=== PATIENT | male | born 1950 | race Caucasian/White ===

== ENCOUNTER → 2018-01-04 | Outpatient (CLI) | payer MEDICARE ==
--- NOTE | 2018-01-04 12:26 | Diagnostic Imaging Report ---
EXAMINATION: PA and lateral chest. INDICATION: COPD. COMPARISON: There are no prior studies available for comparison. FINDINGS: The heart size is within normal limits. The lungs are hyperexpanded. This does suggest COPD. There are coarse perihilar markings on the right. These findings may well be chronic in nature. However, there is a vague area of increased density in the right infrahilar region. This finding could be secondary to superimposition of the perihilar markings. The possibility that there is a mass lesion in this area cannot be entirely excluded. A small focus of pneumonia/atelectasis could also present in this manner. Unless there are previous chest exams available to demonstrate that this finding is stable, then CT of the chest would be recommended for further study. The left hilum is prominent. This is probably due to pulmonary vessels alone. This finding could also be further evaluated by either comparison to previous exams or a followup CT chest exam. There is no sign of failure, pneumonia or pleural effusion otherwise. The mediastinum is not widened. The osseous structures show no evidence for an acute abnormality. There are healed displaced rib fractures bilaterally. IMPRESSION: 1. The vague area of increased density in the right infrahilar region is of uncertain etiology. Considerations and recommendations as above. 2. There is chronic pulmonary disease but there is no sign of an acute cardiopulmonary abnormality otherwise. Dictated by: Dictated on workstation # [id number]
== END ==
LOC: RAD 11:28
PROVIDERS: ATTEND Nurse Practitioner Family
DX: J44.9 Chronic obstructive pulmonary disease, unspecified (principal); J30.9 Allergic rhinitis, unspecified; Z72.0 Tobacco use
CPT/HCPCS: 71046

== ENCOUNTER → 2018-01-26 | Outpatient (CLI) | payer MEDICARE ==
[~2018-01-26] MED LIST: RT-ALBUTEROL SULF 2.5 MG/3 ML PRE-MIX VIAL INH ONE
== END ==
LOC: RT 08:16
PROVIDERS: ATTEND Nurse Practitioner Family
DX: J44.9 Chronic obstructive pulmonary disease, unspecified (principal); J30.9 Allergic rhinitis, unspecified; R06.00 Dyspnea, unspecified; Z72.0 Tobacco use
CPT/HCPCS: 94060; 94726; 94729

== ENCOUNTER → 2022-02-13 | Outpatient (CLI) | payer OTHER ==
--- NOTE | 2022-02-13 08:42 | Diagnostic Imaging Report ---
PROCEDURE: CT chest without contrast. TECHNIQUE: Multiple contiguous axial images were obtained through the chest without the use of intravenous contrast. Auto Exposure Controls were utilized during the CT exam to meet ALARA standards for radiation dose reduction. INDICATION: Pulmonary nodule. Comparison with chest x-ray from 01/04/2018. FINDINGS: The lungs are well-aerated. The density noted in the right lung base on the previous chest x-ray appears to represent pleural scarring. No parenchymal masses are seen. No pleural effusion or pericardial effusion. No mediastinal or hilar adenopathy of pathologic size. Aorta is atherosclerotic. The ascending aorta measures 3.9 cm. IMPRESSION: 1. No parenchymal masses. Pleural scarring noted in the right lung base. 2. Old rib fractures with repair noted on the right. 3. Mild aneurysmal dilatation of the aorta. Dictated by: Dictated on workstation # [id number]
== END ==
LOC: RAD FS 08:04
PROVIDERS: ATTEND Nurse Practitioner
DX: Z01.89 Encounter for other specified special examinations (principal); R91.1 Solitary pulmonary nodule; J98.4 Other disorders of lung; I71.9 Aortic aneurysm of unspecified site, without rupture; Z87.81 Personal history of (healed) traumatic fracture
CPT/HCPCS: 71250

== ENCOUNTER → 2022-08-11 | Outpatient (CLI) | payer OTHER ==
--- NOTE | 2022-08-11 09:25 | Diagnostic Imaging Report ---
CLINICAL INDICATION: AAA. EXAM: Ultrasound of the abdominal aorta. COMPARISON STUDY: None. FINDINGS: The maximum AP and transverse diameters for the upper, mid, and distal abdominal aorta are 2.3 cm x 2.8 cm, 4.1 cm x 4.4 cm, and 2.4 cm x 2.8 cm, respectively. The aneurysmal dilation of the mid abdominal aorta measures 7.8 cm in craniocaudal dimension. Both common iliac artery contours are smooth with normal caliber with the right and left measuring 1.5 cm and 1.5 cm in greatest AP dimension. IMPRESSION: There is aneurysmal dilation of the mid abdominal aorta measuring 4.4 cm in greatest axial dimension. Dictated by: Dictated on workstation # [id number]
== END ==
LOC: RAD FS 07:36
PROVIDERS: ATTEND Nurse Practitioner
DX: Z01.89 Encounter for other specified special examinations (principal); I71.4 Abdominal aortic aneurysm, without rupture
CPT/HCPCS: 76775